=== PATIENT | female | born 2000 | race Hispanic/Latino ===

== ENCOUNTER 2022-12-16 21:51 | Inpatient (IN) | payer OTHER ==
[~2022-12-16] VITALS: Ht 152.4 cm; Wt 66.7 kg
[2022-12-16] MEDS ORDERED: KETOROLAC 30MG VIAL (30MG/ML) IVP ONE (22:30)
[2022-12-16] MEDS ORDERED: 0.9%NACL 1000ML 2,500 ML IV ONE (22:30)
[2022-12-16] MEDS ORDERED: CYCLOBENZAPRINE HCL 10 MG TABLET PO ONE (22:30)
[2022-12-16] MEDS: GABAPENTIN 300 MG CAPSULE PO SCH (22:53)
[2022-12-16 23:46] LABS: INR 0.96 (0.85-1.15); PROTHROMBIN TIME 11.2 SEC (9.6-11.6)
[2022-12-16 23:46] LABS: ABG BASE EXCESS -11.2 mmol/L (-2.0-3.0); ABG OXYGEN SATURATION 97.5 % (95.0-99.0); ABG PCO2 22 mmHg (32-45); PO2, ARTERIAL BG 101.2 mmHg (83.0-108.0); VENT MODE, BG ROOMAIR (ROOM AIR)
[2022-12-16 23:49] LABS: ALBUMIN 1.6 g/dL (3.5-5.0); BILIRUBIN,TOTAL 0.5 mg/dL (0.2-1.0); CREATININE 1.1 mg/dL (0.5-1.5); TOTAL PROTEIN, SERUM 6.6 g/dL (6.0-8.3)
[2022-12-16 23:57] LABS: POTASSIUM 4.1 mmol/L (3.5-5.1)
[2022-12-17] VITALS (25 sets, daily range): BP systolic 95–141; BP diastolic 57–87; PULSE 100–133; RESP 17–37; O2SAT 98–100
[2022-12-17 00:16] LABS: ERYTHROCYTE SEDIMENTATION RATE 116 MM/HR (0-20)
[2022-12-17 00:17] LABS: BASOPHILS # (AUTO) 0.12 K/uL (0.00-0.20); BASOPHILS % (AUTO) 0.7 % (0.0-5.0); EOSINOPHILS # (AUTO) 0.01 K/uL (0.00-0.70); EOSINOPHILS % (AUTO) 0.1 % (0.0-8.0); HEMATOCRIT 34.6 % (36-48); IMMATURE GRANULOCYTE ABSOLUTE 0.47 K/uL (0-1); LYMPHOCYTES # (AUTO) 1.7 K/uL (1.0-4.8); MEAN CORPUSCULAR HEMOGLOBIN 30.5 pg (27.0-33.0); MEAN CORPUSCULAR HGB CONC 33.8 g/dL (32.0-36.0); MEAN CORPUSCULAR VOLUME 90.1 fL (79-99); MONOCYTES # (AUTO) 0.9 K/uL (0.1-1.0); MONOCYTES % (AUTO) 5.5 % (3.0-13.0); NEUTROPHILS # (AUTO) 13.4 K/uL (1.8-7.7); NEUTROPHILS % (AUTO) 80.9 % (40.0-77.0); PLATELET COUNT (AUTO) 304 K/uL (130-400); RED BLOOD CELL COUNT(AUTO) 3.84 MIL/uL (4.00-5.50); RED CELL DISTRIBUTION WIDTH 14.3 % (11.0-15.5); WHITE BLOOD COUNT (AUTO) 16.6 K/uL (4.8-10.8)
[2022-12-17] MEDS ORDERED: D5W-1/2 NS/20MEQ KCL 1,000 ML IV SCH ×2 (01:00→01:30)
[2022-12-17] MEDS ORDERED: INSULIN REGULAR, HUMAN 3ML 100 UNIT in 0.9%NACL 100ML 100 ML IV SCH ×6 (01:00→22:00)
[2022-12-17] MEDS ORDERED: MAGNESIUM 2GM PREMIX 50ML 50 ML IV SCH ×3 (01:00→22:00)
[2022-12-17] MEDS ORDERED: 0.9%NACL 1000ML 1,000 ML IV SCH ×3 (01:00→22:00)
[2022-12-17] MEDS ORDERED: POTASSIUM CHLORIDE 10MEQ/100ML 100 ML IV PRN ×2 (01:30→22:00)
[2022-12-17] MEDS ORDERED: LEVOFLOXACIN 500 MG/D5W 100 ML 100 ML IV SCH (01:30)
[2022-12-17] MEDS ORDERED: ACETAMINOPHEN 325 MG TAB PO PRN (01:30)
[2022-12-17] MEDS ORDERED: ONDANSETRON 4MG INJ IV PRN (01:30)
[2022-12-17 04:26] LABS: APPEARANCE,URINE CLEAR (CLEAR); BILIRUBIN,URINE NEGATIVE (NEGATIVE); COLOR,URINE LIGHT-YELLOW (YELLOW); GLUCOSE, URINE (UA) NEGATIVE (NEGATIVE); KETONES,URINE NEGATIVE (NEGATIVE); LEUKOCYTE ESTERASE ,URINE NEGATIVE Leu/uL (NEGATIVE); NITRATE,URINE NEGATIVE (NEGATIVE); OCCULT BLOOD,URINE NEGATIVE (NEGATIVE); PH,URINE 5.5 (5.0-8.0); PROTEIN,URINE NEGATIVE (NEGATIVE); UROBILINOGEN,URINE 0.2 mg/dL (0.2-1.0)
[2022-12-17 04:27] LABS: ADD UA MICROSCOPIC NO
[2022-12-17 04:34] LABS: CREATININE 0.9 mg/dL (0.5-1.5); POTASSIUM 3.3 mmol/L (3.5-5.1)
[2022-12-17] MEDS: POTASSIUM CHLORIDE 10MEQ/100ML 100 ML IV PRN ×2 (07:20→09:53)
[2022-12-17] MEDS: FAMOTIDINE 20MG VIAL IV SCH ×2 (08:14→20:52)
[2022-12-17] MEDS: KETOROLAC 15MG/ML VIAL (15MG/ML) IV PRN ×3 (08:15→19:40)
[2022-12-17 09:06] LABS: HEMATOCRIT 27.7 % (36-48); MEAN CORPUSCULAR HEMOGLOBIN 30.7 pg (27.0-33.0); MEAN CORPUSCULAR HGB CONC 33.9 g/dL (32.0-36.0); MEAN CORPUSCULAR VOLUME 90.5 fL (79-99); RED BLOOD CELL COUNT(AUTO) 3.06 MIL/uL (4.00-5.50); RED CELL DISTRIBUTION WIDTH 14.2 % (11.0-15.5); WHITE BLOOD COUNT (AUTO) 13.2 K/uL (4.8-10.8)
[2022-12-17 09:21] LABS: CREATININE 0.7 mg/dL (0.5-1.5); POTASSIUM 3.2 mmol/L (3.5-5.1)
[2022-12-17] MEDS: CEFEPIME HCL 2 GM VIAL IVPB SCH ×2 (09:52→20:55)
[2022-12-17] MEDS ORDERED: INSULIN GLARGINE 100 UNITS/ML 10 ML VIAL SQ SCH (10:00)
[2022-12-17] MEDS ORDERED: POTASSIUM CHLORIDE 10% ELIXIR 20 MEQ/15 ML UDCUP PO PRN (10:00)
[2022-12-17] MEDS ORDERED: 0.9%NACL 1000ML 909 ML IV ONE (10:00)
[2022-12-17 10:40] LABS: AMPHET/METH SCREEN,URINE NEGATIVE (NEGATIVE); BARBITURATE SCREEN, URINE NEGATIVE (NEGATIVE); BENZODIAZEPINES SCREEN,URINE NEGATIVE (NEGATIVE); CANNABINOID SCREEN,URINE NEGATIVE (NEGATIVE); COCAINE SCREEN,URINE NEGATIVE (NEGATIVE); OPIATE SCREEN,URINE NEGATIVE (NEGATIVE); PHENCYCLIDINE SCREEN,URINE NEGATIVE (NEGATIVE)
[2022-12-17] MEDS: INSULIN HUMULIN R 100 UNIT/ML 3ML SQ SCH ×3 (11:23→20:54)
[2022-12-17] MEDS ORDERED: PANTOPRAZOLE 40 MG TAB DR PO ONE (11:30)
[2022-12-17] MEDS: KCL 20 MEQ ERTAB PO PRN ×4 (11:34→16:50)
[2022-12-17] MEDS: 0.9%NACL 1000ML 1,000 ML IV SCH ×2 (12:03→23:22)
[2022-12-17] MEDS: DOXYCYCLINE 100MG+NS 250ML IV SCH ×2 (12:03→22:27)
[2022-12-17] MEDS: MORPHINE 2 MG SYG IVP PRN ×2 (12:27→21:47)
[2022-12-17 12:30] LABS: % IRON SATURATION 19.1 % (22-44)
[2022-12-17 12:47] LABS: SARS-CoV-2, RNA, NAAT NEGATIVE SARS CoV-2 (NEGATIVE)
[2022-12-17 12:51] LABS: INFLUENZA TYPE A Negative For Type A (NEGATIVE); INFLUENZA TYPE B Negative For Type B (NEGATIVE)
[2022-12-17 13:03] LABS: CREATININE 0.7 mg/dL (0.5-1.5); POTASSIUM 3.7 mmol/L (3.5-5.1)
[2022-12-17 15:15] LABS: ALBUMIN 1.4 g/dL (3.5-5.0); BILIRUBIN,TOTAL 0.4 mg/dL (0.2-1.0); CREATININE 0.7 mg/dL (0.5-1.5); POTASSIUM 3.4 mmol/L (3.5-5.1)
[2022-12-17] MEDS ORDERED: FLUCONAZOLE 100 MG TAB PO ONE (17:50)
[2022-12-17] MEDS ORDERED: LIDOCAINE HCL 2% VISCOUS 15 ML UDCUP TP STA (17:50)
[2022-12-17] MEDS ORDERED: VALACYCLOVIR HCL 500 MG TABLET PO SCH (18:00)
[2022-12-17] MEDS ORDERED: VALACYCLOVIR HCL 500 MG TABLET PO ONE (18:30)
[2022-12-17] MEDS: INSULIN GLARGINE 100 UNITS/ML 10 ML VIAL SQ SCH (20:53)
[2022-12-17 21:25] LABS: ADD UA MICROSCOPIC YES; APPEARANCE,URINE TURBID (CLEAR); BILIRUBIN,URINE NEGATIVE (NEGATIVE); COLOR,URINE LIGHT-ORANGE (YELLOW); GLUCOSE, URINE (UA) 150 mg/dL (NEGATIVE); KETONES,URINE 5 mg/dL (NEGATIVE); LEUKOCYTE ESTERASE ,URINE 500 Leu/uL (NEGATIVE); NITRATE,URINE NEGATIVE (NEGATIVE); OCCULT BLOOD,URINE LARGE (NEGATIVE); PH,URINE 5.5 (5.0-8.0); PROTEIN,URINE 100 mg/dL (NEGATIVE); UROBILINOGEN,URINE 0.2 mg/dL (0.2-1.0)
[2022-12-17 21:29] LABS: BACTERIA,URINE FEW /HPF (None Seen); MUCUS,URINE RARE LPF (None Seen); RBC,URINE 51-100 /HPF (0-1); WBC CLUMP MOD /HPF (0-1); WBC,URINE 51-100 /HPF (0-1)
[2022-12-17] MEDS ORDERED: MANNITOL 20% 250ML IV.SOLN IV SCH (22:00)
[2022-12-17] MEDS: GABAPENTIN 300 MG CAPSULE PO SCH (22:17)
[2022-12-17] MEDS: D5W-1/2 NS/20MEQ KCL 1,000 ML IV SCH (22:26)
[2022-12-17 22:30] LABS: CREATININE 0.5 mg/dL (0.5-1.5); POTASSIUM 4.1 mmol/L (3.5-5.1)
[2022-12-18] VITALS (24 sets, daily range): BP systolic 94–147; BP diastolic 54–94; PULSE 77–141; RESP 16–30; O2SAT 98–100
[2022-12-18] MEDS: KETOROLAC 15MG/ML VIAL (15MG/ML) IV PRN ×4 (01:49→23:07)
[2022-12-18 04:13] LABS: BASOPHILS # (AUTO) 0.04 K/uL (0.00-0.20); BASOPHILS % (AUTO) 0.3 % (0.0-5.0); EOSINOPHILS % (AUTO) 0.8 % (0.0-8.0); HEMATOCRIT 25.7 % (36-48); IMMATURE GRANULOCYTE ABSOLUTE 0.24 K/uL (0-1); LYMPHOCYTES # (AUTO) 1.4 K/uL (1.0-4.8); LYMPHOCYTES % (AUTO) 11.5 % (21.0-51.0); MEAN CORPUSCULAR HEMOGLOBIN 30.3 pg (27.0-33.0); MEAN CORPUSCULAR HGB CONC 33.5 g/dL (32.0-36.0); MEAN CORPUSCULAR VOLUME 90.5 fL (79-99); MONOCYTES # (AUTO) 0.8 K/uL (0.1-1.0); MONOCYTES % (AUTO) 6.5 % (3.0-13.0); NEUTROPHILS # (AUTO) 9.5 K/uL (1.8-7.7); NEUTROPHILS % (AUTO) 78.9 % (40.0-77.0); PLATELET COUNT (AUTO) 301 K/uL (130-400); RED BLOOD CELL COUNT(AUTO) 2.84 MIL/uL (4.00-5.50); RED CELL DISTRIBUTION WIDTH 14.3 % (11.0-15.5); WHITE BLOOD COUNT (AUTO) 12.1 K/uL (4.8-10.8)
[2022-12-18 04:39] LABS: ALBUMIN 1.2 g/dL (3.5-5.0); BILIRUBIN,TOTAL 0.3 mg/dL (0.2-1.0); CREATININE 0.6 mg/dL (0.5-1.5); THYROID STIMULATING HORMONE 1.88 uIU/mL (0.36-3.74); TOTAL PROTEIN, SERUM 4.8 g/dL (6.0-8.3)
[2022-12-18] MEDS: D5W-1/2 NS/20MEQ KCL 1,000 ML IV SCH ×2 (04:43→10:47)
[2022-12-18 04:47] LABS: CRP QUANTITATIVE 225.5 mg/L (0.00-9.0)
[2022-12-18] MEDS: MORPHINE 2 MG SYG IVP PRN ×2 (05:38→13:12)
[2022-12-18] MEDS: INSULIN HUMULIN R 100 UNIT/ML 3ML SQ SCH ×4 (07:30→20:32)
[2022-12-18] MEDS: 0.9%NACL 1000ML 1,000 ML IV SCH (08:00)
[2022-12-18] MEDS: FLUCONAZOLE 100 MG TAB PO SCH (08:30)
[2022-12-18] MEDS: PANTOPRAZOLE 40 MG TAB DR PO SCH (08:30)
[2022-12-18] MEDS: VALACYCLOVIR HCL 500 MG TABLET PO SCH (08:30)
[2022-12-18] MEDS: CEFEPIME HCL 2 GM VIAL IVPB SCH ×2 (08:31→20:35)
[2022-12-18] MEDS: FAMOTIDINE 20MG VIAL IV SCH (08:31)
[2022-12-18 08:33] LABS: AMPHET/METH SCREEN,URINE NEGATIVE (NEGATIVE); BARBITURATE SCREEN, URINE NEGATIVE (NEGATIVE); BENZODIAZEPINES SCREEN,URINE NEGATIVE (NEGATIVE); CANNABINOID SCREEN,URINE POSITIVE (NEGATIVE); COCAINE SCREEN,URINE NEGATIVE (NEGATIVE); OPIATE SCREEN,URINE NEGATIVE (NEGATIVE); PHENCYCLIDINE SCREEN,URINE NEGATIVE (NEGATIVE)
[2022-12-18] MEDS: INSULIN GLARGINE 100 UNITS/ML 10 ML VIAL SQ SCH ×2 (08:36→20:31)
[2022-12-18 08:57] LABS: CREATININE 0.6 mg/dL (0.5-1.5); POTASSIUM 3.8 mmol/L (3.5-5.1)
[2022-12-18] MEDS: LIDOCAINE 4% ADH..PATCH TP SCH (09:38)
[2022-12-18] MEDS: DOXYCYCLINE 100MG+NS 250ML IV SCH ×2 (11:35→23:01)
[2022-12-18 12:36] LABS: CREATININE 0.5 mg/dL (0.5-1.5); POTASSIUM 3.9 mmol/L (3.5-5.1)
[2022-12-18] MEDS: PROPRANOLOL HCL 20 MG TAB PO SCH (14:24)
[2022-12-18] MEDS: LACTATED RINGERS 1000ML 1,000 ML IV SCH ×2 (14:25→23:02)
[2022-12-18 16:26] LABS: CREATININE 0.6 mg/dL (0.5-1.5); POTASSIUM 4.8 mmol/L (3.5-5.1)
[2022-12-18] MEDS: ACETAMINOPHEN 325 MG TAB PO PRN (17:27)
[2022-12-18 22:00] LABS: CREATININE 0.6 mg/dL (0.5-1.5); POTASSIUM 3.7 mmol/L (3.5-5.1)
[2022-12-18] MEDS ORDERED: DEXTROSE 50%-WATER 50 ML DISP.SYRIN IV ONE (22:24)
[2022-12-18] MEDS ORDERED: GLUCAGON 1MG KIT 1 MG ML IM PRN (22:30)
[2022-12-18] MEDS: DEXTROSE 50%-WATER 50 ML DISP.SYRIN IV PRN (22:41)
[2022-12-18] MEDS: GABAPENTIN 300 MG CAPSULE PO SCH (22:42)
[2022-12-19] VITALS (31 sets, daily range): BP systolic 93–148; BP diastolic 60–106; PULSE 89–119; RESP 11–30; O2SAT 98–99
[2022-12-19] MEDS: PROPRANOLOL HCL 20 MG TAB PO SCH ×3 (01:10→23:56)
[2022-12-19] MEDS: INSULIN HUMULIN R 100 UNIT/ML 3ML SQ SCH ×5 (07:30→21:00)
[2022-12-19] MEDS: INSULIN GLARGINE 100 UNITS/ML 10 ML VIAL SQ SCH ×3 (07:43→21:15)
[2022-12-19] MEDS: VALACYCLOVIR HCL 500 MG TABLET PO SCH (07:46)
[2022-12-19] MEDS: DEXTROSE 50%-WATER 50 ML DISP.SYRIN IV PRN ×2 (07:46→11:50)
[2022-12-19] MEDS: LIDOCAINE 4% ADH..PATCH TP SCH (07:46)
[2022-12-19] MEDS: PANTOPRAZOLE 40 MG TAB DR PO SCH (07:46)
[2022-12-19] MEDS: FLUCONAZOLE 100 MG TAB PO SCH (07:46)
[2022-12-19] MEDS: LACTATED RINGERS 1000ML 1,000 ML IV SCH ×2 (07:47→20:11)
[2022-12-19] MEDS: CEFEPIME HCL 2 GM VIAL IVPB SCH ×2 (09:35→21:19)
[2022-12-19] MEDS: DOXYCYCLINE 100MG+NS 250ML IV SCH ×2 (11:50→23:30)
[2022-12-19] MEDS: KETOROLAC 15MG/ML VIAL (15MG/ML) IV PRN (14:28)
[2022-12-19] MEDS: MORPHINE 2 MG SYG IVP PRN (20:06)
[2022-12-19] MEDS: GABAPENTIN 300 MG CAPSULE PO SCH (22:30)
[2022-12-20] VITALS (7 sets, daily range): BP systolic 95–108; BP diastolic 60–74; PULSE 74–103; RESP 16–20; TEMP 99.2; O2SAT 98–99
[2022-12-20] MEDS: ACETAMINOPHEN 325 MG TAB PO PRN (00:06)
[2022-12-20] MEDS: LACTATED RINGERS 1000ML 1,000 ML IV SCH ×2 (05:30→09:25)
[2022-12-20 06:13] LABS: BASOPHILS # (AUTO) 0.04 K/uL (0.00-0.20); BASOPHILS % (AUTO) 0.4 % (0.0-5.0); EOSINOPHILS # (AUTO) 0.07 K/uL (0.00-0.70); EOSINOPHILS % (AUTO) 0.7 % (0.0-8.0); HEMATOCRIT 26.7 % (36-48); IMMATURE GRANULOCYTE ABSOLUTE 0.17 K/uL (0-1); LYMPHOCYTES # (AUTO) 1.5 K/uL (1.0-4.8); MEAN CORPUSCULAR HEMOGLOBIN 30.3 pg (27.0-33.0); MEAN CORPUSCULAR HGB CONC 34.1 g/dL (32.0-36.0); MONOCYTES # (AUTO) 0.8 K/uL (0.1-1.0); MONOCYTES % (AUTO) 7.4 % (3.0-13.0); NEUTROPHILS # (AUTO) 8.1 K/uL (1.8-7.7); NEUTROPHILS % (AUTO) 75.9 % (40.0-77.0); PLATELET COUNT (AUTO) 417 K/uL (130-400); RED CELL DISTRIBUTION WIDTH 14.4 % (11.0-15.5); WHITE BLOOD COUNT (AUTO) 10.7 K/uL (4.8-10.8)
[2022-12-20] MEDS: INSULIN HUMULIN R 100 UNIT/ML 3ML SQ SCH ×4 (06:16→21:04)
[2022-12-20 06:30] LABS: ALBUMIN 1.2 g/dL (3.5-5.0); BILIRUBIN,TOTAL 0.3 mg/dL (0.2-1.0); CREATININE 0.7 mg/dL (0.5-1.5); MAGNESIUM 1.3 mg/dL (1.80-2.40); PHOSPHORUS 2.8 mg/dL (2.5-4.9); POTASSIUM 3.2 mmol/L (3.5-5.1); TOTAL PROTEIN, SERUM 5.8 g/dL (6.0-8.3)
[2022-12-20] MEDS: LIDOCAINE 4% ADH..PATCH TP SCH (09:00)
[2022-12-20] MEDS: CEFEPIME HCL 2 GM VIAL IVPB SCH ×2 (09:18→20:56)
[2022-12-20] MEDS: VALACYCLOVIR HCL 500 MG TABLET PO SCH (09:19)
[2022-12-20] MEDS: FLUCONAZOLE 100 MG TAB PO SCH (09:19)
[2022-12-20] MEDS: PANTOPRAZOLE 40 MG TAB DR PO SCH (09:19)
[2022-12-20] MEDS: INSULIN GLARGINE 100 UNITS/ML 10 ML VIAL SQ SCH ×2 (09:21→21:03)
[2022-12-20] MEDS: DOXYCYCLINE 100MG+NS 250ML IV SCH ×2 (11:35→23:44)
[2022-12-20] MEDS: PROPRANOLOL HCL 20 MG TAB PO SCH (12:37)
[2022-12-20] MEDS: LACTULOSE 20 GM/30 ML UDCUP PO SCH ×2 (12:37→20:57)
[2022-12-20] MEDS ORDERED: AZITHROMYCIN 250 MG TABLET PO ONE (18:00)
[2022-12-20] MEDS: CLOTRIMAZOLE/BETAMETHASONE DIP 45 GM CREAM.GM. TP SCH (20:57)
[2022-12-20] MEDS: GABAPENTIN 300 MG CAPSULE PO SCH (23:44)
[2022-12-21 00:03] VITALS: BP 127/82; PULSE 100; RESP 18
[2022-12-21] MEDS: PROPRANOLOL HCL 20 MG TAB PO SCH ×2 (02:16→13:23)
[2022-12-21 04:15] VITALS: BP 94/55; PULSE 94; RESP 18
[2022-12-21 06:48] LABS: BASOPHILS # (AUTO) 0.03 K/uL (0.00-0.20); BASOPHILS % (AUTO) 0.3 % (0.0-5.0); EOSINOPHILS % (AUTO) 0.9 % (0.0-8.0); HEMATOCRIT 25.8 % (36-48); IMMATURE GRANULOCYTE ABSOLUTE 0.11 K/uL (0-1); LYMPHOCYTES # (AUTO) 1.6 K/uL (1.0-4.8); LYMPHOCYTES % (AUTO) 14.6 % (21.0-51.0); MEAN CORPUSCULAR HEMOGLOBIN 29.6 pg (27.0-33.0); MEAN CORPUSCULAR HGB CONC 31.8 g/dL (32.0-36.0); MEAN CORPUSCULAR VOLUME 93.1 fL (79-99); MONOCYTES # (AUTO) 0.9 K/uL (0.1-1.0); MONOCYTES % (AUTO) 8.3 % (3.0-13.0); NEUTROPHILS % (AUTO) 74.9 % (40.0-77.0); PLATELET COUNT (AUTO) 470 K/uL (130-400); RED BLOOD CELL COUNT(AUTO) 2.77 MIL/uL (4.00-5.50); RED CELL DISTRIBUTION WIDTH 14.6 % (11.0-15.5); WHITE BLOOD COUNT (AUTO) 10.6 K/uL (4.8-10.8)
[2022-12-21] MEDS: INSULIN HUMULIN R 100 UNIT/ML 3ML SQ SCH ×2 (06:53→11:30)
[2022-12-21 07:06] LABS: ALBUMIN 1.2 g/dL (3.5-5.0); BILIRUBIN,TOTAL 0.2 mg/dL (0.2-1.0); CREATININE 0.5 mg/dL (0.5-1.5); TOTAL PROTEIN, SERUM 5.7 g/dL (6.0-8.3)
[2022-12-21 07:20] LABS: POTASSIUM 2.6 mmol/L (3.5-5.1)
[2022-12-21 07:26] VITALS: BP 96/59; PULSE 97; RESP 16
[2022-12-21] MEDS: KCL 20 MEQ ERTAB PO PRN ×4 (07:32→13:15)
[2022-12-21] MEDS: INSULIN GLARGINE 100 UNITS/ML 10 ML VIAL SQ SCH (08:27)
[2022-12-21] MEDS: DOXYCYCLINE 100MG+NS 250ML IV SCH (08:29)
[2022-12-21] MEDS: VALACYCLOVIR HCL 500 MG TABLET PO SCH (08:30)
[2022-12-21] MEDS: PANTOPRAZOLE 40 MG TAB DR PO SCH (08:30)
[2022-12-21] MEDS: FLUCONAZOLE 100 MG TAB PO SCH (08:30)
[2022-12-21] MEDS: CLOTRIMAZOLE/BETAMETHASONE DIP 45 GM CREAM.GM. TP SCH (08:32)
[2022-12-21] MEDS: LACTULOSE 20 GM/30 ML UDCUP PO SCH (08:39)
[2022-12-21] MEDS: LIDOCAINE 4% ADH..PATCH TP SCH (08:40)
[2022-12-21] MEDS: CEFEPIME HCL 2 GM VIAL IVPB SCH (09:04)
[2022-12-21] MEDS ORDERED: VALA500T PO (10:50)
[2022-12-21] MEDS ORDERED: PROP20TA96 PO (10:50)
[2022-12-21] MEDS ORDERED: PANT40TA PO (10:50)
[2022-12-21 11:52] VITALS: BP 106/68; PULSE 101; RESP 16
== END 2022-12-21 13:45 | disposition home or self-care (01) | DRG 637 ==
LOC: EDH 21:51 → EDBD 21:51 → EDHIP 21:52 → 2CH 12-17 04:38 → WSH 12-19 13:45
PROVIDERS: ADMIT Hospitalist; ATTEND Hospitalist
DX: E10.10 Type 1 diabetes mellitus with ketoacidosis without coma (principal); E43 Unspecified severe protein-calorie malnutrition; R57.1 Hypovolemic shock; N13.6 Pyonephrosis; Z20.822 Contact with and (suspected) exposure to COVID-19; E86.0 Dehydration; D64.9 Anemia, unspecified; G89.29 Other chronic pain; A60.09 Herpesviral infection of other urogenital tract; E87.6 Hypokalemia; E83.42 Hypomagnesemia; E78.5 Hyperlipidemia, unspecified; F32.A Depression, unspecified; K76.0 Fatty (change of) liver, not elsewhere classified; N32.89 Other specified disorders of bladder; Z79.4 Long term (current) use of insulin; Z68.28 Body mass index [BMI] 28.0-28.9, adult
CPT/HCPCS: 36415; 36600; 71045; 72131; 76700; 80048; 80053; 80305; 81001; 81003; 82010; 82550; 82803; 82948; 83036; 83540; 83550; 83605; 83690; 83735; 83930; 84100; 84145; 84443; 84478; 84484; 84703; 85025; 85027; 85610; 85651; 85730; 86140; 86592; 86701; 87040; 87088; 87101; 87206; 87390; 87486; 87635; 87797; 87804; 93005; A4344; G0378; J0692; J1815; J1885; J1956; J2270; J3475; J3480; J3490; J7030; J7070; J7120; A4600

== ENCOUNTER 2023-01-01 23:43 | Emergency (ER) | payer OTHER ==
[~2023-01-01] VITALS: Ht 152.4 cm; Wt 59.0 kg
[~2023-01-01 23:43] MED LIST: PANT40TA PO; PROP20TA96 PO; VALA500T PO
[2023-01-01 23:45] VITALS: BP 125/70; PULSE 121; RESP 20; O2SAT 98
[2023-01-02] MEDS ORDERED: HYDR50CA50 PO (00:47)
[2023-01-02] MEDS ORDERED: HYDROXYZINE 25 MG TABLET PO ONE (01:00)
== END 2023-01-02 00:45 | disposition home or self-care (01) ==
LOC: EDH 23:43
DX: M79.642 Pain in left hand (principal); M79.645 Pain in left finger(s); R20.2 Paresthesia of skin; F41.9 Anxiety disorder, unspecified; Z79.899 Other long term (current) drug therapy; Z90.49 Acquired absence of other specified parts of digestive tract; Z98.890 Other specified postprocedural states